=== PATIENT | male | born 2000 | race Caucasian/White ===

== ENCOUNTER 2018-01-12 07:19 | Emergency (ER) | payer OTHER, SELFPAY ==
[2018-01-12] MEDS ORDERED: Ondansetron ODT 4 MG TAB ONE (07:51)
[2018-01-12] MEDS ORDERED: Ketorolac Tromethamine 60 MG/2 ML VIAL ONE (07:51)
== END 2018-01-12 08:26 | disposition home or self-care (01) ==
LOC: BURERS 07:19
DX: G43.109 Migraine with aura, not intractable, without status migrainosus (principal)
CPT/HCPCS: 96372; J1885; Q0162

== ENCOUNTER 2018-12-01 06:12 | Emergency (ER) | payer SELFPAY ==
[2018-12-01] MEDS ORDERED: Ibuprofen 800 MG TAB ONE (06:33)
[2018-12-01] MEDS ORDERED: Cyclobenzaprine 10 MG TAB ONE (06:33)
== END 2018-12-01 06:58 | disposition home or self-care (01) ==
LOC: BURERS 06:12
DX: M62.838 Other muscle spasm (principal); F41.9 Anxiety disorder, unspecified
CPT/HCPCS: 99283